=== PATIENT | male | born 1960 | race Caucasian/White ===

== ENCOUNTER 2016-06-24 09:40 | Inpatient (IN) | payer OTHER ==
[2016-06-07 10:47] VITALS: BMI 53.0
--- NOTE | 2016-06-07 11:28 | PAT Medication Instructions ---
Service Date Jun 07, 2016. Current Home Medication List Amlodipine Besylate-Olmesartan (Saad), 1 TAB PO QAM Aspirin (Aspirin Ec), 81 MG PO NOON Furosemide (Lasix), 40 MG PO QAM Hydrocodone/Acetaminophen 5MG/325MG (Carnegie 5MG/325MG), 1 TAB PO TID PRN for RN Metolazone (Metolazone), 5 MG PO QAM Potassium Chloride Pwd (Klor-Con Pwd), 20 MEQ PO QAM [Magnesium], 1 TAB PO PRN Medication Instructions For Your Scheduled Surgery - Check with surgeon/unemployment claims adjudicator for instructions: Aspirin (Aspirin Ec), 81 MG PO NOON - Hold the following medications the morning of surgery: [Magnesium], 1 TAB PO PRN Potassium Chloride Pwd (Klor-Con Pwd), 20 MEQ PO QAM Furosemide (Lasix), 40 MG PO QAM\ Metolazone (Metolazone), 5 MG PO QAM - Take the following medications the morning of surgery with a sip of water: Amlodipine Besylate-Olmesartan (Saad), 1 TAB PO QAM Hydrocodone/Acetaminophen 5MG/325MG (Carnegie 5MG/325MG), 1 TAB PO TID PRN for RN ( okay to take up to 4 hours prior to surgery if needed) - Take the following medications as scheduled the night before surgery: [Magnesium], 1 TAB PO PRN Hydrocodone/Acetaminophen 5MG/325MG (Carnegie 5MG/325MG), 1 TAB PO TID PRN for RN If you have any questions please call us at [phone] (Danitza Choudhary PA-C) or [phone] or [phone]
[2016-06-07 12:05] LABS: URINE APPEARANCE CLEAR (CLEAR); URINE BILIRUBIN NEG (NEG); URINE COLOR YELLOW; URINE NITRITE NEG (NEG); URINE SPECIFIC GRAVITY 1.015 (1.000-1.030); UROBILINOGEN NEG (NEG)
[2016-06-07 12:10] LABS: MANUAL MICROSCOPIC REQUIRED? NO; REVIEW REQ? NO
[2016-06-07 12:27] LABS: BASO % 0.4 %; BASO ABS # 0.04 K/uL (0-0.2); COMPLETE YES; EOS % 4.4 %; HEMATOCRIT 43.5 % (42-52); IG% 0.3 %; LYMPH % 28.9 %; LYMPH ABS # 2.77 K/uL (1.2-3.4); MEAN CELL VOLUME 90.4 fL (80-100); MEAN CORPUSCULAR HEMOGLOBIN 30.4 pg (25-34); MEAN CORPUSCULAR HGB CONC 33.6 g/dl (32-36); MEAN PLATELET VOLUME 10.7 fL (7.4-10.4); MONO % 6.5 %; NEUT % 59.5 %; PLATELET COUNT 225 K/uL (130-400); RED BLOOD COUNT 4.81 M/uL (4.7-6.1); WHITE BLOOD COUNT 9.58 K/uL (4.8-10.8)
--- NOTE | 2016-06-07 12:35 | DIAGNOSTIC IMAGING REPORT ---
CHEST 2 VIEWS ROUTINE CLINICAL HISTORY: pat preoperative evaluation COMPARISON STUDY: No previous studies for comparison. FINDINGS: The bones soft tissues and hemidiaphragms are normal. The cardiomediastinal silhouette is normal. The lungs are clear. The pulmonary vasculature is normal. IMPRESSION: Negative chest. . . 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 06/07/2016 12:33 PM Dictated Date/Time: 06/07/2016 12:32 PM
[2016-06-07 12:37] LABS: PARTIAL THROMBOPLASTIN RATIO 1.1; PROTHROMBIN TIME (PATIENT) 10.2 SECONDS (9.0-12.0)
[2016-06-07 13:01] LABS: BUN/CREATININE RATIO 19.7 (10-20); CALCIUM 9.8 mg/dl (8.5-10.1); CREATININE 0.89 mg/dl (0.60-1.40)
[2016-06-24] VITALS (7 sets, daily range): BP systolic 130–195; BP diastolic 63–85; PULSE 59–73; TEMP 36.6–37.1; O2SAT 96–98; Ht 177.8 cm; Wt 168.1 kg
[~2016-06-24] VITALS: Ht 177.8 cm; Wt 168.1 kg
[~2016-06-24 09:40] MED LIST: AMLO-3 PO; ASPI81TA28 PO; CEFAZOLIN 3000 MG/65 ML D5W IV SCH; FRS/40 PO; HYDR-5688 PO; LACTATED RINGER'S 1000ML 1,000 ML IV SCH; MAGNESIUM PO; POTA1POW PO; ZRX5 PO
[2016-06-24] MEDS ORDERED: MIDAZOLAM HCL 1 MG/ML 2ML VIAL ONE (11:59)
[2016-06-24] MEDS ORDERED: FENTANYL CITRATE INJ 50 MCG/1 ML 2 ML VIAL ONE ×3 (11:59→13:57)
[2016-06-24] MEDS ORDERED: PROPOFOL IV EMULSION 10 MG/ML 20 ML VIAL IV ONE ×2 (11:59→13:27)
[2016-06-24] MEDS ORDERED: LIDOCAINE HCL 2% 2 ML VIAL (20MG/ML) ONE (11:59)
[2016-06-24] MEDS ORDERED: ONDANSETRON INJ 2 MG/ML 2 ML VIAL IV PRN ×2 (12:15→16:45)
[2016-06-24] MEDS ORDERED: MEPERIDINE HCL 25 MG/ML CARP IV PRN (12:15)
[2016-06-24] MEDS ORDERED: ATROPINE SULFATE 0.1 MG/ML 5ML SYR IV PRN (12:15)
[2016-06-24] MEDS ORDERED: EpHEDrine SULFATE INJ 50 MG/ML AMP IV PRN (12:15)
--- NOTE | 2016-06-24 12:30 | History & Physical Bridge Note ---
H&P Re-Evaluation Bridge Note: I have examined the patient, reviewed the History & Physical and in the interval since the performance of the History & Physical I have noted the following changes of clinical significance: No changes noted
[2016-06-24] MEDS ORDERED: BUPIVACAINE 0.5 % 5 MG/1 ML MPF 30ML VIAL ONE (12:44)
[2016-06-24] MEDS ORDERED: SUCCINYLCHOLINE 100MG/5ML SYR IV ONE (13:27)
[2016-06-24] MEDS ORDERED: ROCURONIUM BROMIDE 10 MG/ML 5 ML VIAL ONE (13:27)
[2016-06-24] MEDS ORDERED: GLYCOPYRROLATE INJ 0.2 MG/ML VIAL ONE (13:28)
[2016-06-24] MEDS ORDERED: NEOSTIGMINE METHYLSULFATE 5 MG/5 ML SYR ONE (13:28)
[2016-06-24] MEDS ORDERED: ONDANSETRON INJ 2 MG/ML 2 ML VIAL ONE (13:28)
[2016-06-24] MEDS ORDERED: EpHEDrine SULFATE INJ 50 MG/ML AMP ONE (13:35)
[2016-06-24] MEDS ORDERED: HydrALAZINE HCL 20 MG/ML VIAL ONE (14:02)
[2016-06-24] MEDS ORDERED: BACITRACIN OINT 15 GM TUBE ONE (15:40)
[2016-06-24] MEDS ORDERED: OXYCODONE/ACETAMINOPHEN 7.5-325 TAB PO PRN (16:45)
[2016-06-24] MEDS ORDERED: MAGNESIUM PO SCH (16:45)
[2016-06-24] MEDS ORDERED: HYDROmorphone INJ 1 MG/ML SYR IV PRN (16:45)
[2016-06-24] MEDS ORDERED: ESMOLOL HCL 10 MG/ML 10 ML VIAL ONE (16:48)
[2016-06-24] MEDS: FENTANYL CITRATE INJ 50 MCG/1 ML 2 ML VIAL IV PRN ×4 (16:49→17:05)
--- NOTE | 2016-06-24 17:07 | [facility] Post Operative Brief Note ---
Immediate Operative Summary Operative Date Jun 24, 2016. Pre-Operative Diagnosis scrotal lymphedema, bilateral hydroceles Post-Operative Diagnosis Scrotal lymphedema; b/l hydroceles; b/l lipomas of the cord Procedure(s) Performed Diagnostic laparoscopy (Dr. Sanchez); complex reduction scrotoplasty; b/l hydrocelectomy; b/l excision of cord lipomas Surgeon Dr. Jeremias Medina Behavioral Analyst Surgeon(s) Dr. Ruddy Allen & J[place]ICA Ross & Dr.Matthew Sanchez Estimated Blood Loss 125ml Findings Scrotal lymphedema. Healthy testes w/ small/moderate hydroceles bilaterally. Large fatty collections of the cord b/l. Given concern that this was omentum or intra-peritoneal fat, we requested an intra-op consult from Dr. Sanchez who subsequently assisted us with interrogating these areas. Diagnostic laparoscopy was carried out without clear intraop evidence that the fat in the scrotum was secondary to inguinal hernias. Following this evaluation, we transected and excised this fatty tissue, revealing no bowel or other structures within and it did not palpably extend through the ring or adjacent to the ring,, supporting the diagnosis of cord lipoma. Specimens B. Scrotal fat right C. Scrotal fat left Drains STEFANIA x2; cunninghma catheter Anesthesia gen Complication(s) None Disposition Recovery Room / PACU (stable)
[2016-06-24 17:14] LABS: HEMATOCRIT 37.7 % (42-52); MEAN CELL VOLUME 88.7 fL (80-100); MEAN CORPUSCULAR HEMOGLOBIN 30.1 pg (25-34); MEAN PLATELET VOLUME 9.9 fL (7.4-10.4); PLATELET COUNT 230 K/uL (130-400); RED BLOOD COUNT 4.25 M/uL (4.7-6.1); WHITE BLOOD COUNT 16.28 K/uL (4.8-10.8)
[2016-06-24] MEDS: MoRPHine SULFATE 10 MG/ML CARP/VIAL IV PRN ×5 (17:22→17:42)
[2016-06-24 17:35] LABS: BUN/CREATININE RATIO 14.9 (10-20); CALCIUM 8.8 mg/dl (8.5-10.1); CREATININE 1.3 mg/dl (0.60-1.40); POTASSIUM 3.7 mmol/L (3.5-5.1)
[2016-06-24] MEDS ORDERED: ACETAMINOPHEN 1000 MG/100 ML IV IV ONE ×2 (17:42→17:45)
--- NOTE | 2016-06-24 18:30 | Anesthesiology Progress Note ---
Anesthesia Post Op Note Date & Time Jun 24, 2016 at 18:28 Vital Signs Pain Intensity: 7 Vital Signs Past 12 Hours Date Time Temp Pulse Resp B/P Pulse Ox O2 Delivery O2 Flow Rate FiO2 06/24/16 17:50 36.1 61 16 113/64 94 BiPAP 5 06/24/16 17:40 56 16 126/57 93 BiPAP 5 06/24/16 17:30 54 16 127/58 94 BiPAP 5 06/24/16 17:20 56 16 136/63 94 BiPAP 5 06/24/16 17:10 60 16 143/97 92 BiPAP 5 06/24/16 17:00 66 16 137/75 94 BiPAP 4 06/24/16 16:50 63 16 146/73 97 BiPAP 06/24/16 16:44 36.2 68 16 150/71 97 Mask 10 06/24/16 10:00 37.1 60 22 195/85 96 Room Air Notes Mental Status: alert / awake / arousable, participated in evaluation Pt Amnestic to Procedure: Yes Nausea / Vomiting: adequately controlled Pain: improving with treatment Airway Patency, RR, SpO2: stable & adequate BP & HR: stable & adequate Hydration State: stable & adequate Anesthetic Complications: no major complications apparent Patient was placed on his home BiPAP at his regular settings. Pain was improving with treatment. No nausea. Plan for continued BiPAP use overnight and also wrote for continued pulse oximetry on the floor. VSS. Ok for transfer.
[2016-06-24] MEDS: LACTATED RINGER'S 1000ML 1,000 ML IV SCH (19:52)
[2016-06-24] MEDS: AMPICILLIN IV 2,000 MG in SODIUM CHLOR 0.9% AD-VAN 100ML 100 ML IV SCH (19:53)
[2016-06-24] MEDS: DOCUSATE SODIUM 100 MG CAP PO SCH (20:42)
[2016-06-24] MEDS: ACETAMINOPHEN 500 MG TAB PO SCH (20:43)
[2016-06-24] MEDS: GENTAMICIN INJ 100 MG in DEXTROSE 5% 100ML 100 ML IV SCH (21:38)
[2016-06-24] MEDS ORDERED: GENTAMICIN INJ 80 MG in DEXTROSE 5% 100ML 100 ML IV SCH (22:00)
--- NOTE | 2016-06-24 22:08 | OPERATIVE REPORT ---
DATE OF OPERATION: 06/24/2016 INTRAOPERATIVE CONSULT AND PROCEDURE NOTE Please refer to Dr. Jeremias Medina's operative note for the main component of the procedure. They were in the midst of performing a reduction scrotoplasty as well as some other procedures, I believe including some hydrocelectomies on a patient with a massively enlarged scrotum. During this process, they encountered 2 large strands of what was felt to be omentum. They were concerned that perhaps these were previously undiagnosed incarcerated bilateral inguinal hernias with omentum. They requested my presence in the operating suite. When I entered, they already had a large portion of the scrotal reduction performed. Exposed were 2 large strands of what appeared to be omentum exteriorized. They did have the scrotum and cord and cord structures all identified and uninjured. There was no evidence of any bowel incarceration. Because of the patient's massive size and obesity, I recommended that we perform an intraoperative diagnostic laparoscopy to see if in fact there were incarcerated bilateral hernias before undertaking inguinal explorations. We were able to sterilely prep and drape the abdomen and I scrubbed into the case. Dr. Medina and Dr. Allen both assisted me during my portion of the procedure. I began by making a small supraumbilical incision with an 11 blade scalpel and carried it down through the soft tissue using electrocautery. The anterior rectus fascia was opened using electrocautery and two #0 Vicryl stay sutures were placed. Peritoneum was elevated with hemostats and incised under direct vision using a Metzenbaum scissor. A finger sweep was performed. A 12 mm Jennifer trocar was placed and the abdomen was insufflated to 20 mmHg. Laparoscope was inserted. We placed 2 left mid abdominal 5 mm trocars under direct vision as well. The patient was placed in steep Trendelenburg position. Began by using smooth graspers and looking down into the bilateral inguinal areas. There was in fact no evidence of inguinal hernias. The bowel was all identified. There was no evidence of any omental or bowel incarceration. We checked both the left and right sides thoroughly. No other abnormalities identified within the abdomen either. This allowed us assurance that it was actually some sort of lipomatous phenomenon in the scrotum that they could readily transect. After identifying there were no true hernias, I then scrubbed out of the case. They wished that I would leave the trocars as they wanted to evaluate things at the end of their procedure as well. I scrubbed out of the case at this point and they continued their scrotal portion, followed by I believe they reevaluated things laparoscopically and then they closed all the laparoscopic trocars. I attest to the content of the Intraoperative Record and any orders documented therein. Any exceptio ns are noted below.
--- NOTE | 2016-06-24 23:12 | OPERATIVE REPORT ---
DATE OF OPERATION: 06/24/2016 PREOPERATIVE DIAGNOSIS: Massive scrotal lymphedema, bilateral hydroceles. POSTOPERATIVE DIAGNOSIS: Massive scrotal lymphedema, bilateral hydroceles, bilateral cord lipomas. PROCEDURE PERFORMED: highly complex reduction scrotoplasty, bilateral hydrocele repair, excision of cord lipoma and exploratory laparoscopy by Dr. Nithin Sanchez. PRIMARY SURGEON: Dr. Jeremias Medina. ASSISTANTS: Dr. Ruddy Allen and Ms. Ny Morales. INTRAOPERATIVE SUBSEA ENGINEER: Dr. Nithin Sanchez ANESTHESIA: General. ESTIMATED BLOOD LOSS: 125 mL URINE OUTPUT: Not recorded. SPECIMEN: 1. Scrotal skin for routine pathology. 2. Right cord lipoma for routine pathology. 3. Left cord lipoma for routine pathology. DRAINS: STEFANIA x2 and Shipman catheter. DESCRIPTION OF THE PROCEDURE: Cristopher Knight was identified in the preoperative holding area. Appropriate informed consents were reviewed and completed and the patient was transported to the operating suite. Upon arrival, he received appropriate preoperative antibiotics in the form of Ancef. He was placed in dorsal lithotomy position and sterilely prepped and draped in standard fashion. A Shipman catheter was introduced per urethra. I then marked tentative incision in a semicircular fashion, beginning on the right inguinal fold ending in the left inguinal fold and encompassing the upper 1/4 of his scrotum. Thereafter, I marked a second semicircular incision that would track underneath the most dependent portion of the scrotum where it meets the perineum. I began with the upper incision by incising sharply through the skin utilizing a skin knife. I then carried this further with Bovie electrocautery and then ultimately, with a LigaSure device. As I dissected through the dartos fascia, I was able to skeletonize the tunical vaginalis and testes and deliver these structures through the incision. After elevating these out of the incision, I was able to more easily complete my posterior incision through the back of the scrotal wall, again utilizing a skin knife, Bovie electrocautery and the LigaSure device. This debulked the vast majority of the extremely large scrotum. The specimen was passed off the table. We then inspected the testes and of note, large hydroceles were clearly visible in the distal aspect; however, the upper aspect of the scrotum appeared to have a relatively thick feeling, concerning me that there was some fat and other tissue within the tunica vaginalis of the upper scrotum. I opened the tunica vaginalis over the testis, where there was clearly visible hydrocele fluid. This was explored. The testis was healthy and appropriate. The hydrocele was corrected. We then explored higher up the cord and found a lipomatous structure, concerning for omentum. I palpated up around the external ring and felt the fat extending up to this area; however, it was somewhat difficult to discern if it protruded through it. I was unable to reduce this. Inspection of the left side, revealed a similar finding overall, although I had not yet opened the tunica vaginalis. The appearance certainly made me concerned that there were concurrent bilateral inguinal hernias. We subsequently called for intraoperative consult from Dr. Nithin Sanchez from general surgery. He graciously helped us further evaluate the situation. He performed a diagnostic laparoscopy and inspected internal rings. This interrogation failed to reveal any inguinal hernias - either direct or indirect. From the abdominal side, there was no visible bowel or omentum protruding into the scrotum/inguinal rings. We subsequently felt that the fatty tissue was most likely cord lipoma on both sides. We were able to separate the cord structures away from the fat, then we carefully dissected through the fat and transected this as proximally as possible utilizing a LigaSure device for hemostasis. There was no bowel or other abnormalities noted within this fatty tissue and there was excellent hemostasis. After completing the right-sided dissection, we performed an identical dissection on the left side. Before we closed the scrotum, we reinspected through the laparoscopic ports placed previously in the abdomen. There were no abnormalities appreciated and no change in the appearance of the inguinal rings following this resection. After confirming excellent hemostasis, I began reconstruction of the scrotal wall. In the most dependent portion of the incision, I began a vertical closure to essentially elongate and reconstruct the perineum.This reconstructed the perineal raphae. Approximately five Ethibond stitches were placed in simple interrupted fashion to creat a deep closure layer in this area. I followed this by closure of the skin with vertical mattress 0 Vicryl stitches. Before closing the scrotum, I placed b/l plicating stitches to attempt to hold some of his penile shaft skin down and help keep limit the burying of his penis. Following this plication, I then reattached the midline scrotal rhaphe to the previously closed area in the perineum. This was accomplished with a deep layer of 0 Ethibond simple stitches followed by closure of the skin with 0 Vicryl vertical mattress stitches. I then proceeded to place several intermittent tacking stitches with 0 Ethibond around the sides of the scrotum. This allowed us to trap the testes back in their paskenta position in the scrotum. I then placed 2 STEFANIA drains through the upper portion of the scrotum, one on the right and one on the left. These were sutured in place. Ethibond was then used to circumferentially reclose the dartos fascia. These were closely placed, simple interrupted stitches. I estimate approximately 70 stitches were placed around the scrotum. I then proceeded to place vertical mattress 0 Vicryl stitches to close the skin and complete our reapproximation. There was relatively good cosmetic result at the conclusion of the case with a drastic reduction in the scrotal appearance. We also proceeded to close the laparoscopic ports, utilizing the previously placed Vicryl stitch for the Jennifer port and 4-0 Monocryl to close the skin. These were dressed with Dermabond. The wound down in the scrotum was dressed with bacitracin, fluffs and a scrotal support. Shipman catheter was left in place in addition to the drains. The patient was subsequently extubated and taken to the PACU in stable condition. There were no other complications. I attest to the content of the Intraoperative Record and any orders documented therein. Any exceptions are noted below. GAURAVD
[2016-06-25] MEDS: LACTATED RINGER'S 1000ML 1,000 ML IV SCH ×3 (00:08→18:07)
[2016-06-25] MEDS: AMPICILLIN IV 2,000 MG in SODIUM CHLOR 0.9% AD-VAN 100ML 100 ML IV SCH ×3 (01:30→13:22)
[2016-06-25] MEDS: ACETAMINOPHEN 500 MG TAB PO SCH ×4 (01:30→20:00)
[2016-06-25 02:45] VITALS: BP 153/75; PULSE 70; TEMP 36.9; O2SAT 93
[2016-06-25] MEDS ORDERED: NURSING DECISION MEDICATION ORDER SCH (03:15)
[2016-06-25] MEDS ORDERED: SODIUM CHLORIDE 0.65% NA SOLN 45 ML (OCEAN) ONE (03:20)
[2016-06-25] MEDS ORDERED: SODIUM CHLORIDE 0.65% NA SOLN 45 ML (OCEAN) PRN (03:30)
[2016-06-25] MEDS: KETOROLAC TROMETHAMINE 30 MG/ML VIAL IV. PRN ×2 (04:17→13:27)
[2016-06-25] MEDS: GENTAMICIN INJ 100 MG in DEXTROSE 5% 100ML 100 ML IV SCH ×2 (05:43→14:10)
[2016-06-25 07:01] LABS: BASO % 0.2 %; BASO ABS # 0.02 K/uL (0-0.2); COMPLETE YES; EOS % 0.7 %; HEMATOCRIT 36.1 % (42-52); IG% 0.4 %; LYMPH % 17.9 %; LYMPH ABS # 2.18 K/uL (1.2-3.4); MEAN CELL VOLUME 90.3 fL (80-100); MEAN CORPUSCULAR HEMOGLOBIN 29.8 pg (25-34); MEAN PLATELET VOLUME 10.2 fL (7.4-10.4); MONO % 8.1 %; NEUT % 72.7 %; PLATELET COUNT 193 K/uL (130-400)
[2016-06-25 07:09] VITALS: BP 168/78; PULSE 60; TEMP 37; O2SAT 96
--- NOTE | 2016-06-25 07:26 | Progress Note ---
Progress Note Date of Service Jun 25, 2016. Progress Note S: Doing as well as can be expected after surgery - pain is notable, but tolerable - no leg weakness/pain - no abdominal pain O: 06/25/16 06:46 Red Blood Count 4.00, Mean Corpuscular Volume 90.3, Mean Corpuscular Hemoglobin 29.8, Mean Corpuscular Hemoglobin Concent 33.0, Mean Platelet Volume 10.2, Neutrophils (%) (Auto) 72.7, Lymphocytes (%) (Auto) 17.9, Monocytes (%) (Auto) 8.1, Eosinophils (%) (Auto) 0.7, Basophils (%) (Auto) 0.2, Neutrophils # (Auto) 8.88, Lymphocytes # (Auto) 2.18, Monocytes # (Auto) 0.99, Eosinophils # (Auto) 0.08, Basophils # (Auto) 0.02 Test 06/24/16 17:05 06/25/16 06:46 Est Creatinine Clear Calc Drug Dose 97.3 ml/min White Blood Count 12.20 K/uL (4.8-10.8) Red Blood Count 4.00 M/uL (4.7-6.1) Hemoglobin 11.9 g/dL (14.0-18.0) Hematocrit 36.1 % (42-52) Mean Corpuscular Volume 90.3 fL (80-100) Mean Corpuscular Hemoglobin 29.8 pg (25-34) Mean Corpuscular Hemoglobin Concent 33.0 g/dl (32-36) Platelet Count 193 K/uL (130-400) Mean Platelet Volume 10.2 fL (7.4-10.4) Neutrophils (%) (Auto) 72.7 % Lymphocytes (%) (Auto) 17.9 % Monocytes (%) (Auto) 8.1 % Eosinophils (%) (Auto) 0.7 % Basophils (%) (Auto) 0.2 % Neutrophils # (Auto) 8.88 K/uL (1.4-6.5) Lymphocytes # (Auto) 2.18 K/uL (1.2-3.4) Monocytes # (Auto) 0.99 K/uL (0.11-0.59) Eosinophils # (Auto) 0.08 K/uL (0-0.5) Basophils # (Auto) 0.02 K/uL (0-0.2) RDW Standard Deviation 49.6 fL (36.4-46.3) RDW Coefficient of Variation 14.9 % (11.5-14.5) Immature Granulocyte % (Auto) 0.4 % Immature Granulocyte # (Auto) 0.05 K/uL (0.00-0.02) Vital Signs Past 12 Hours Date Time Temp Pulse Resp B/P Pulse Ox O2 Delivery O2 Flow Rate FiO2 06/25/16 07:09 37.0 60 20 168/78 96 CPAP 06/25/16 02:45 36.9 70 16 153/75 93 BiPAP 06/25/16 00:00 BiPAP 06/24/16 22:55 36.6 61 18 157/76 96 CPAP 06/24/16 21:41 36.6 59 16 130/63 97 BiPAP 5.0 06/24/16 20:20 36.8 73 18 138/79 96 CPAP 5.0 06/24/16 19:22 36.7 70 20 154/72 97 CPAP 5.0 NAD using his home bipap overnight RRR abd soft - lap incisions appropriate JPs with serosang drainage scrotal incisions healing appropriately some expected induration of the testes A/P: Massive scrotal lymphedema s/p reduction scrotoplasty - doing well - maintain drains - ambulate today - maintain cunningham for the time being, secondary to buried penis and desire to keep the wound dry - keep scrotal support
[2016-06-25 07:37] LABS: BUN/CREATININE RATIO 18.2 (10-20); CALCIUM 8.5 mg/dl (8.5-10.1); CREATININE 1.1 mg/dl (0.60-1.40); POTASSIUM 3.9 mmol/L (3.5-5.1)
--- NOTE | 2016-06-25 08:05 | Clinical Documentation Query ---
VENITA Sandoval : CLINICAL DOCUMENTATION QUERY Patient is a 56 year old male who on 06/24 underwent reduction scrotoplasty, bilateral hydrocele repair, excision of cord lipoma and exploratory laparoscopy by Dr. Sanchez. BMI noted to be 53.2 kg/m*m. In order to capture this information in the medical record, the associated condition must be explicitly documented by the provider. As appropriate, consider inclusion of documentation making note of this particular finding as appropriate as this directly impacts DRG assignment, severity of illness, and risk of mortality. Thank you. In your clinical opinion does your patient have a personal history of: (x ) Obesity (x ) Other explanation of clinical findings (Please Explain) (massive lymphedema of the legs and scrotum) ( ) Unable to determine (Please Define) ( ) Need to Discuss ( ) Not Agree Clarification - BMI Reporting Coding [facility] [id number], p15 Question: There has been some confusion as to whether nursing staff documentation is acceptable for assigning BMI. Since hospitals are allowed to code the BMI based on the wood lathe operator's documentation, it would seem reasonable to assign the BMI based on the nurse's documentation as well. Can coders use nursing documentation to assign the BMI? Answer: Yes, the BMI can be assigned based on medical record documentation from clinicians, including nurses and dieticians who are not the patient's provider. As stated in the Official Guidelines for Coding and Reporting, BMI code assignment may be based on medical record documentation from clinicians who are not the patient's provider, since this information is typically documented by other clinicians involved in the care of the patient. Dieticians were only mentioned as an example of a clinician that might document BMI information. However, the associated diagnosis (such as overweight, obesity, or underweight) must be documented by the provider. Please clarify and document your clinical opinion in the progress notes and discharge summary. Terms such as "probable", "suspected", "likely", "questionable", "possible", or "still to be ruled out" are acceptable. IF IN AGREEMENT, YOU MUST DOCUMENT ABOVE DIAGNOSTIC STATEMENT IN DAILY PROGRESS NOTES AND DISCHARGE SUMMARY. This document is not part of the patient's record. Thank You, Cliff Rios, RN [phone]
[2016-06-25] MEDS: POTASSIUM CHLORIDE PWD 20 MEQ PACK PO SCH (08:29)
[2016-06-25] MEDS: METOLAZONE 5 MG TAB PO SCH (08:29)
[2016-06-25] MEDS: FUROSEMIDE 40 MG TAB PO SCH (08:29)
[2016-06-25] MEDS: DOCUSATE SODIUM 100 MG CAP PO SCH ×2 (08:30→20:28)
[2016-06-25] MEDS: ASPIRIN 81 MG ECTAB PO SCH (08:30)
[2016-06-25] MEDS: HEPARIN SOD 5000 UNIT/0.5 ML CARP SQ SCH ×2 (08:33→21:00)
--- NOTE | 2016-06-25 08:39 | Anesthesiology Progress Note ---
Anesthesia Post Op Note Date & Time Jun 25, 2016 at 08:38 Vital Signs Pain Intensity: 8.0 Vital Signs Past 12 Hours Date Time Temp Pulse Resp B/P Pulse Ox O2 Delivery O2 Flow Rate FiO2 06/25/16 07:09 37.0 60 20 168/78 96 CPAP 06/25/16 02:45 36.9 70 16 153/75 93 BiPAP 06/25/16 00:00 BiPAP 06/24/16 22:55 36.6 61 18 157/76 96 CPAP 06/24/16 21:41 36.6 59 16 130/63 97 BiPAP 5.0 Notes Mental Status: alert / awake / arousable, participated in evaluation Pt Amnestic to Procedure: Yes Nausea / Vomiting: adequately controlled Pain: adequately controlled Airway Patency, RR, SpO2: stable & adequate BP & HR: stable & adequate Hydration State: stable & adequate Anesthetic Complications: no major complications apparent
[2016-06-25 12:00] VITALS: BP 186/102; PULSE 76; TEMP 37.1; O2SAT 95
[2016-06-25 15:56] VITALS: BP 173/81; PULSE 73; TEMP 36.9; O2SAT 95
[2016-06-25] MEDS ORDERED: NURSING VERBAL MED ORDER ONE (18:00)
[2016-06-25] MEDS: PHENAZOPYRIDINE HCL 200 MG TAB PO PRN (18:42)
--- NOTE | 2016-06-25 19:15 | Progress Note ---
Progress Note Date of Service Jun 25, 2016. Progress Note Came to evaluate patient as he was having excessive urinary frequency and urgency - discomfort from the bladder to the tip of the penis - states it started almost immediately after taking his dose of lasix - reports this happens, on a lesser degree, at home (will urinate 5-6 times shortly after taking the medication) - this has been somewhat worse than his normal - RN bladder scanned for 24cc - I repeated after arrival - same result (between 0-30cc) - bladder does not feel palpably distended - scrotum with notable edema and subsequent buried penis - I have offered a catheter for relief, he prefers to continue with his urinary frequency - plan for observation overnight - oxybutynin and pyridium ordered - IVF stopped, adequate PO liquid intake - cont with his lasix to prevent further fluid overload
[2016-06-25] MEDS: OXYBUTYNIN CHLORIDE 5 MG TAB PO PRN (20:27)
[2016-06-25 22:34] VITALS: BP 169/91
[2016-06-26 00:03] VITALS: BP 172/90; PULSE 88; TEMP 37; O2SAT 94
[2016-06-26] MEDS: KETOROLAC TROMETHAMINE 30 MG/ML VIAL IV. PRN (00:11)
[2016-06-26] MEDS: ACETAMINOPHEN 500 MG TAB PO SCH ×4 (02:43→20:34)
[2016-06-26 06:00] LABS: BASO % 0.3 %; BASO ABS # 0.04 K/uL (0-0.2); COMPLETE YES; EOS % 0.9 %; HEMATOCRIT 34.4 % (42-52); IG% 0.4 %; LYMPH % 18.2 %; LYMPH ABS # 2.31 K/uL (1.2-3.4); MEAN CELL VOLUME 88.4 fL (80-100); MEAN CORPUSCULAR HEMOGLOBIN 29.6 pg (25-34); MEAN CORPUSCULAR HGB CONC 33.4 g/dl (32-36); MONO % 9.2 %; PLATELET COUNT 206 K/uL (130-400); RED BLOOD COUNT 3.89 M/uL (4.7-6.1); WHITE BLOOD COUNT 12.68 K/uL (4.8-10.8)
[2016-06-26 06:52] LABS: CALCIUM 8.7 mg/dl (8.5-10.1); CREATININE 1.2 mg/dl (0.60-1.40); POTASSIUM 3.2 mmol/L (3.5-5.1)
[2016-06-26 07:44] VITALS: BP 181/96; PULSE 78; TEMP 37; O2SAT 96
[2016-06-26 09:11] VITALS: O2SAT 96
[2016-06-26] MEDS: DOCUSATE SODIUM 100 MG CAP PO SCH ×2 (09:42→20:31)
[2016-06-26] MEDS: POTASSIUM CHLORIDE PWD 20 MEQ PACK PO SCH (09:42)
[2016-06-26] MEDS: ASPIRIN 81 MG ECTAB PO SCH (09:42)
[2016-06-26] MEDS: PHENAZOPYRIDINE HCL 200 MG TAB PO PRN (09:43)
[2016-06-26] MEDS: OXYBUTYNIN CHLORIDE 5 MG TAB PO PRN (09:43)
[2016-06-26] MEDS: AZOR PO SCH (09:44)
[2016-06-26] MEDS: FUROSEMIDE 40 MG TAB PO SCH (09:44)
[2016-06-26] MEDS: METOLAZONE 5 MG TAB PO SCH (09:45)
[2016-06-26] MEDS: HEPARIN SOD 5000 UNIT/0.5 ML CARP SQ SCH ×2 (09:49→20:33)
--- NOTE | 2016-06-26 10:56 | Progress Note ---
Progress Note Date of Service Jun 26, 2016. Progress Note S: progressing well - urinary issues last night have resolved this AM - stronger stream, no urgency, frequency - pain well controlled - ambulating without difficulty - drain outputs are reasonable (serosang) O: 06/26/16 05:39 Red Blood Count 3.89, Mean Corpuscular Volume 88.4, Mean Corpuscular Hemoglobin 29.6, Mean Corpuscular Hemoglobin Concent 33.4, Mean Platelet Volume 10.0, Neutrophils (%) (Auto) 71.0, Lymphocytes (%) (Auto) 18.2, Monocytes (%) (Auto) 9.2, Eosinophils (%) (Auto) 0.9, Basophils (%) (Auto) 0.3, Neutrophils # (Auto) 9.00, Lymphocytes # (Auto) 2.31, Monocytes # (Auto) 1.17, Eosinophils # (Auto) 0.11, Basophils # (Auto) 0.04 06/26/16 05:39 Test 06/26/16 05:39 White Blood Count 12.68 K/uL (4.8-10.8) Red Blood Count 3.89 M/uL (4.7-6.1) Hemoglobin 11.5 g/dL (14.0-18.0) Hematocrit 34.4 % (42-52) Mean Corpuscular Volume 88.4 fL (80-100) Mean Corpuscular Hemoglobin 29.6 pg (25-34) Mean Corpuscular Hemoglobin Concent 33.4 g/dl (32-36) Platelet Count 206 K/uL (130-400) Mean Platelet Volume 10.0 fL (7.4-10.4) Neutrophils (%) (Auto) 71.0 % Lymphocytes (%) (Auto) 18.2 % Monocytes (%) (Auto) 9.2 % Eosinophils (%) (Auto) 0.9 % Basophils (%) (Auto) 0.3 % Neutrophils # (Auto) 9.00 K/uL (1.4-6.5) Lymphocytes # (Auto) 2.31 K/uL (1.2-3.4) Monocytes # (Auto) 1.17 K/uL (0.11-0.59) Eosinophils # (Auto) 0.11 K/uL (0-0.5) Basophils # (Auto) 0.04 K/uL (0-0.2) RDW Standard Deviation 48.0 fL (36.4-46.3) RDW Coefficient of Variation 14.9 % (11.5-14.5) Immature Granulocyte % (Auto) 0.4 % Immature Granulocyte # (Auto) 0.05 K/uL (0.00-0.02) Anion Gap 8.0 mmol/L (3-11) Est Creatinine Clear Calc Drug Dose 105.4 ml/min Estimated GFR () 76.8 Estimated GFR (Non- 66.3 BUN/Creatinine Ratio 17.0 (10-20) Calcium Level 8.7 mg/dl (8.5-10.1) Vital Signs Past 12 Hours Date Time Temp Pulse Resp B/P Pulse Ox O2 Delivery O2 Flow Rate FiO2 06/26/16 09:11 96 Room Air 06/26/16 07:44 37.0 78 16 181/96 96 Room Air 06/26/16 00:15 BiPAP 06/26/16 00:03 37.0 88 18 172/90 94 Room Air NAD BiPAP on (home unit) - no resp distress - RRR abd soft - lap sites w/o infection - non-tender - scrotum with modest edema - incisions clean, no erythema,no discharge - drains serosang A/P: s/p complex reduction scrotoplasty - progressing well - maintain drains for now - advance diet - add flomax
[2016-06-26] MEDS ORDERED: TAMSULOSIN HCL 0.4 MG CAP PO ONE (11:15)
[2016-06-26 11:44] VITALS: BP 165/88; PULSE 76; TEMP 37; O2SAT 96
[2016-06-26 15:22] VITALS: BP 168/78; PULSE 79; TEMP 37.1; O2SAT 95
[2016-06-26] MEDS ORDERED: TAMSULOSIN HCL 0.4 MG CAP PO SCH (21:00)
[2016-06-26 23:00] VITALS: BP 166/78; PULSE 82; TEMP 37.2; O2SAT 93
[2016-06-27] MEDS: ACETAMINOPHEN 500 MG TAB PO SCH ×2 (02:00→07:27)
[2016-06-27 06:41] LABS: BASO % 0.4 %; BASO ABS # 0.04 K/uL (0-0.2); COMPLETE YES; EOS % 4.2 %; HEMATOCRIT 33.5 % (42-52); IG% 0.5 %; LYMPH % 21.7 %; LYMPH ABS # 2.44 K/uL (1.2-3.4); MEAN CELL VOLUME 89.1 fL (80-100); MEAN CORPUSCULAR HEMOGLOBIN 29.8 pg (25-34); MEAN CORPUSCULAR HGB CONC 33.4 g/dl (32-36); MEAN PLATELET VOLUME 10.3 fL (7.4-10.4); MONO % 7.9 %; NEUT % 65.3 %; PLATELET COUNT 215 K/uL (130-400); RED BLOOD COUNT 3.76 M/uL (4.7-6.1); WHITE BLOOD COUNT 11.26 K/uL (4.8-10.8)
[2016-06-27 07:11] VITALS: BP 153/75; PULSE 74; TEMP 37.2; O2SAT 97
[2016-06-27 07:22] LABS: BUN/CREATININE RATIO 16.6 (10-20); CALCIUM 8.7 mg/dl (8.5-10.1); CREATININE 1.4 mg/dl (0.60-1.40); POTASSIUM 2.9 mmol/L (3.5-5.1)
[2016-06-27] MEDS: KETOROLAC TROMETHAMINE 30 MG/ML VIAL IV. PRN ×2 (07:27→12:53)
[2016-06-27] MEDS: ASPIRIN 81 MG ECTAB PO SCH (08:43)
[2016-06-27] MEDS: DOCUSATE SODIUM 100 MG CAP PO SCH (08:44)
[2016-06-27] MEDS: AZOR PO SCH (08:45)
[2016-06-27] MEDS: HEPARIN SOD 5000 UNIT/0.5 ML CARP SQ SCH (08:50)
[2016-06-27] MEDS: METOLAZONE 5 MG TAB PO SCH (09:00)
[2016-06-27] MEDS ORDERED: POTASSIUM CHLORIDE 20 MEQ TABCR PO SCH (09:00)
[2016-06-27] MEDS: FUROSEMIDE 40 MG TAB PO SCH (09:00)
[2016-06-27] MEDS: POTASSIUM CHLR 10 MEQ / WTR 10 MEQ in PREMIXED WATER 100 ML IV SCH ×2 (09:00→10:00)
--- NOTE | 2016-06-27 09:25 | Progress Note ---
Progress Note Date of Service Jun 27, 2016. Progress Note S: did well overnight BM less pain voiding better anxious to go home O: 06/27/16 05:48 Red Blood Count 3.76, Mean Corpuscular Volume 89.1, Mean Corpuscular Hemoglobin 29.8, Mean Corpuscular Hemoglobin Concent 33.4, Mean Platelet Volume 10.3, Neutrophils (%) (Auto) 65.3, Lymphocytes (%) (Auto) 21.7, Monocytes (%) (Auto) 7.9, Eosinophils (%) (Auto) 4.2, Basophils (%) (Auto) 0.4, Neutrophils # (Auto) 7.36, Lymphocytes # (Auto) 2.44, Monocytes # (Auto) 0.89, Eosinophils # (Auto) 0.47, Basophils # (Auto) 0.04 06/27/16 05:48 Test 06/27/16 05:48 White Blood Count 11.26 K/uL (4.8-10.8) Red Blood Count 3.76 M/uL (4.7-6.1) Hemoglobin 11.2 g/dL (14.0-18.0) Hematocrit 33.5 % (42-52) Mean Corpuscular Volume 89.1 fL (80-100) Mean Corpuscular Hemoglobin 29.8 pg (25-34) Mean Corpuscular Hemoglobin Concent 33.4 g/dl (32-36) Platelet Count 215 K/uL (130-400) Mean Platelet Volume 10.3 fL (7.4-10.4) Neutrophils (%) (Auto) 65.3 % Lymphocytes (%) (Auto) 21.7 % Monocytes (%) (Auto) 7.9 % Eosinophils (%) (Auto) 4.2 % Basophils (%) (Auto) 0.4 % Neutrophils # (Auto) 7.36 K/uL (1.4-6.5) Lymphocytes # (Auto) 2.44 K/uL (1.2-3.4) Monocytes # (Auto) 0.89 K/uL (0.11-0.59) Eosinophils # (Auto) 0.47 K/uL (0-0.5) Basophils # (Auto) 0.04 K/uL (0-0.2) RDW Standard Deviation 47.2 fL (36.4-46.3) RDW Coefficient of Variation 14.5 % (11.5-14.5) Immature Granulocyte % (Auto) 0.5 % Immature Granulocyte # (Auto) 0.06 K/uL (0.00-0.02) Anion Gap 9.0 mmol/L (3-11) Est Creatinine Clear Calc Drug Dose 90.3 ml/min Estimated GFR () 63.7 Estimated GFR (Non- 55.0 BUN/Creatinine Ratio 16.6 (10-20) Calcium Level 8.7 mg/dl (8.5-10.1) Vital Signs Past 12 Hours Date Time Temp Pulse Resp B/P Pulse Ox O2 Delivery O2 Flow Rate FiO2 06/27/16 07:11 37.2 74 19 153/75 97 BiPAP 06/27/16 00:00 BiPAP 06/26/16 23:00 37.2 82 16 166/78 93 Room Air NAD AAOx3 no resp distress rrr abd soft - port sites healing appropriately scrotal incisions appropriate, no d/c drains serosang A/p: s/p complex scrotal reduction - d/c home today with drains intact - K+ given this AM (oral and PO), on K+ at home - drains out next week
[2016-06-27] MEDS ORDERED: HYDR-5688 PO (09:27)
[2016-06-27] MEDS ORDERED: TAMS0.4C38 PO (09:27)
[2016-06-27] MEDS ORDERED: DOXY1TAB6 PO (09:27)
[2016-06-27] MEDS ORDERED: DOCU-94 PO (09:27)
--- NOTE | 2016-06-27 09:28 | Discharge Instructions ---
Discharge Instructions Date of Service Jun 27, 2016. Admission Reason for Admission: Scrotal Anomaly Discharge Discharge Diagnosis / Problem: scrotal lymph edema Discharge Goals Goal(s): Decrease discomfort, Improve function, Increase independence, Improve disease control, Prevent Disease Progression Activity Recommendations Activity Limitations: per Instructions/Follow-up section Lifting Limitations: no more than 25 pounds Exercise/Sports Limitations: gradually increase as tolerated May Resume Sexual Activity: when tolerated Shower/Bathe: keep incision dry (until your drains are removed. ) Driving or Machine Use: resume 1 day after discharge (as long as you arent taking pain medications) . Current Hospital Diet Hospital Diet(s): AHA Diet (Heart Healthy) Discharge Diet Recommended Diet: Regular Diet Procedures Procedures Performed: Diagnostic laparoscopy (Dr. Sanchez); complex reduction scrotoplasty; b/l hydrocelectomy; b/l excision of cord lipomas Pending Studies Studies pending at discharge: no Medical Emergencies . Who to Call and When: Medical Emergencies: If at any time you feel your situation is an emergency, please call 911 immediately. . Non-Emergent Contact Non-Emergency issues call your: Urologist Call Non-Emergent contact if: you have a fever, temperature is above 101.5, your pain is not controlled, your pain is worsening, wound has increased drainage, wound has increased redness . . "Provider Documentation" section prepared by Kartik Castañeda. VTE Core Measure Inpt VTE Proph given/why not?: Treatment not indicated
--- NOTE | 2016-06-27 09:46 | Discharge Summary ---
Discharge Summary Date of Service Jun 27, 2016. Discharge Summary Admission Date: Jun 24, 2016 at 16:52 Discharge Date: Jun 27, 2016 Discharge Disposition: Home Principal Diagnosis: massive scrotal edema; lipomas of the cords; hydroceles Procedures: complex reduction scrotoplasty, exploratory laparoscopy Medication Reconciliation New Medications: Docusate Sodium (Colace) 100 Mg Cap 1 CAP PO BID for 15 Days, #30 CAP Doxycycline Hyclate (Doxycycline Hyclate) 100 Mg Tab 1 TAB PO BID for 10 Days, #20 TAB Tamsulosin Hcl (Flomax) 0.4 Mg Cap 0.4 MG PO QD, #30 CAP Continued Medications: Amlodipine Besylate-Olmesartan (Saad) 1 Tab Tab 1 TAB PO QAM for 90 Days, #90 TAB 3 Refills 10/40 MG Aspirin (Aspirin Ec) 81 Mg Tab 81 MG PO NOON Furosemide (Lasix) 40 Mg Tab 40 MG PO QAM, TAB Hydrocodone/Acetaminophen 5MG/325MG ([place] 5MG/325MG) Tab 1 TAB PO TID PRN for RN for 30 Days, #30 TAB (This prescription has been renewed ) PRN PAIN Metolazone (Metolazone) 5 Mg Tab 5 MG PO QAM Potassium Chloride Pwd (Klor-Con Pwd) 20 Meq Pack 20 MEQ PO QAM [Magnesium] () 1 TAB PO PRN Hospital Course Admitted for reduction scrotoplasty. Details of the procedure as dictated previously in the operative reports, however, in summary, he tolerated the procedure well and was transferred to the floor in stable condition post operatively - he progressed well - ambulated - passed a voiding trial - tolerated a diet - edema was tolerable - no signs of infection - on POD #3, he was determined to be stable for d/c home - will go home with the drains in place Total time spent on discharge = This includes examination of the patient, discharge planning, medication reconciliation, and communication with other providers. Discharge Instructions please see previously written d/c instructions
[2016-06-27 11:42] VITALS: BP 101/66; PULSE 67; TEMP 36.4; O2SAT 98
[2016-06-27 12:21] VITALS: BP 101/66; PULSE 67; TEMP 36.4; O2SAT 98
[2016-08-23] MEDS ORDERED: DLDI IV (20:50)
[2016-08-23] MEDS ORDERED: NRV5 PO (20:50)
== END 2016-06-27 13:56 | disposition home health service (06) | DRG 989 ==
LOC: ENRESERVDT → ENRESERVTM → C.ACU 09:40 → C.MSW 16:52
PROVIDERS: ADMIT Urology; ATTEND Urology
PROC: 0VQ60ZZ Repair Right Tunica Vaginalis, Open Approach (ICD-10-PCS; principal; 2016-06-24 11:45)
PROC: 0VQ Male Reproductive System, Repair (ICD-10-PCS; principal; 2016-06-24 11:45)
PROC: 0VQ50ZZ Repair Scrotum, Open Approach (ICD-10-PCS; principal; 2016-06-24 11:45)
PROC: 0VBH0ZZ Excision of Bilateral Spermatic Cords, Open Approach (ICD-10-PCS; principal; 2016-06-24 11:45)
PROC: 0YQA4ZZ Repair Bilateral Inguinal Region, Percutaneous Endoscopic Approach (ICD-10-PCS; 2016-06-24 11:45)
DX: I89.0 Lymphedema, not elsewhere classified (principal); N43.3 Hydrocele, unspecified; D17.6 Benign lipomatous neoplasm of spermatic cord; R35.0 Frequency of micturition; M19.90 Unspecified osteoarthritis, unspecified site; I10 Essential (primary) hypertension; Z79.82 Long term (current) use of aspirin

== ENCOUNTER 2016-08-23 01:02 | Inpatient (IN) | payer OTHER ==
[~2016-08-23] VITALS: Ht 177.8 cm; Wt 157.0 kg
[2016-08-23] VITALS (13 sets, daily range): BP systolic 136–192; BP diastolic 70–95; PULSE 56–81; TEMP 36.4–36.8; O2SAT 94–100; Ht 177.8 cm; Wt 157.0 kg
[~2016-08-23 01:02] MED LIST changes: -CEFAZOLIN 3000 MG/65 ML D5W IV SCH; -LACTATED RINGER'S 1000ML 1,000 ML IV SCH
[2016-08-23] MEDS ORDERED: ONDANSETRON INJ 2 MG/ML 2 ML VIAL IV PRN ×2 (03:30→16:30)
[2016-08-23] MEDS ORDERED: MAGNESIUM HYDROXIDE SUSP 30 ML UDC PO PRN (03:30)
[2016-08-23] MEDS ORDERED: ACETAMINOPHEN 325 MG TAB PO PRN (03:30)
--- NOTE | 2016-08-23 03:32 | History and Physical ---
History & Physical Date & Time of Service: Aug 23, 2016 at 03:27 Chief Complaint: Scrotal Pain Primary Care Physician: Cristopher Chakraborty D.O. History of Present Illness Source: patient 56-year-old male with a past medical history of hypertension, hyperlipidemia, paroxysmal atrial fibrillation, objective sleep apnea, hernias, status post scrotoplasty presented as a direct admit from [facility] with complaints of right-sided testicular pain. 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 He complains of pain on his right side at the inside of his thigh and his right testicle which started on and off since last week. He states that it began to get worse within the last couple days. He describes the pain as constant, dull stabbing in nature about 15 on a scale of 10 in severity. Denies any nausea or vomiting, fevers or chills. Denies any dysuria, hematuria but complains of hesitancy and "having to push" to urinate. Denies any chest pain, shortness of breath, diarrhea Social History Smoking Status: Light Tobacco Smoker Allergies Coded Allergies: No Known Allergies (Unverified , 06/24/16) Home Medications Scheduled Amlodipine Besylate (Amlodipine Besylate), 5 MG PO QAM Tamsulosin Hcl (Flomax), 0.4 MG PO DAILY Scheduled PRN Hydromorphone HCl (Hydromorphone HCl), 1 MG IV Q2H PRN for Pain Review of Systems Constitutional: No fever, No chills Eyes: No worsening of vision ENT: No hearing loss Respiratory: No cough, No shortness of breath Cardiovascular: No chest pain Abdomen: + pain, + nausea, No vomiting, No diarrhea Genitourinary - Male: + urinary hesitancy, + problem reported (Right sided testicular pain) Neurologic: No paralysis Endocrine: No fatigue Hematologic / Lymphatic: No abnormal bleeding/bruising Physical Exam Vital Signs Date Time Temp Pulse Resp B/P (MAP) Pulse Ox O2 Delivery O2 Flow Rate FiO2 08/23/16 02:40 36.7 80 19 146/80 (102) 96 Room Air General Appearance: WD/WN, + mild distress, + obese Head: normocephalic, atraumatic Eyes: + pertinent finding ( proptosis asya right side) ENT: hearing grossly normal Neck: supple Respiratory/Chest: chest non-tender, lungs clear, normal breath sounds, no respiratory distress, no accessory muscle use Cardiovascular: regular rate, rhythm Abdomen/GI: + tenderness (RLQ and at laparoscopic sites) Genitourinary - Male: + penile abnormality (buried in scrotum), + testicular tenderness (asya left side), + pertinent finding (Right sided scrotal swelling, hard to palpation and tender. tender left scrotum. ) Back: normal inspection Extremities/Musculoskelatal: + pedal edema (3+ withy chronic venous stasis) Neurologic/Psych: alert, normal mood/affect, oriented x 3 Skin: + pertinent finding (yellowish ulcer with serous drainage at posterior scrotum on right side) Diagnostics Laboratory Results Results Past 24 Hours Test 08/23/16 03:22 08/23/16 03:25 Range/Units Diagnostic Radiology CT abdomen and pelvis was obtained at outside hospital: Report: There is a right hydronephrosis and hydroureter. There is fluid and infiltration around the right kidney and ureter. There is herniation of the right ureter into the right inguinal canal and scrotum. This appears to be the cause of the right-sided obstructive changes. Shift of penile shaft to left by hernia. Difficult to follow the right ureter. Limited without contrast. There is a fluid density collection that extends posterior laterally to the right ureter and kidney displacing the right kidney anteromedially. Suspect at least a portion of this is the right ureter though abscess is within the differential as well. Difficult to follow the right ureter particularly without contrast. Within the scrotum itself there are fluid collections. Portions of this may represent a distended right ureter though component of hydrocele and possibly abscess may also be present. Small amount of free fluid in the right sided abdomen felt to be extending from right perinephric infiltration. There is also mild left hydronephrosis and hydroureter which may be related to bladder distention though herniation does appear to be the primary cause of right-sided obstructive changes. There is prostate enlargement and bladder distention, some of which may be related to prostate enlargement. Mild mural thickening of the bladder is suspected. Could be related to prostate enlargement. No herniation of bladder seen in the right scrotum/inguinal canal. Surgical consultation recommended. Gallbladder distended with possible layering debris which may represent stones and/or sludge. Questionable mild wall thickening. Though suspect the right inguinal hernia/obstructive changes of the right kidney are etiology of patient' s acute presentation, cannot exclude cholecystitis. Correlate clinically. Visualized appendix appears unremarkable other than some nonspecific increased density within the lumen. Small lateral hernia. Prominent sized spleen. Measures slightly over 13 cm cranial caudal. Additional incidental findings. Impression Assessment and Plan 56-year-old male with a past medical history of hypertension, hyperlipidemia, paroxysmal atrial fibrillation, objective sleep apnea, hernias, status post scrotoplasty presented as a direct admit from [facility] with complaints of right-sided testicular pain. Right-sided testicular pain: Status post scrotoplasty secondary to scrotal lymphedema - CT abdomen/pelvis at outside hospital reveals right-sided hydronephrosis and hydroureter . herniation of the right ureter into the right inguinal canal and scrotum - Pain control with morphine - Nothing by mouth - Urology consult Acute kidney injury: Likely secondary to obstruction due to herniation of the right ureter into the right inguinal canal - Creatinine at OSH at 2.8 - Monitor creatinine - Lasix, metolazone, Saad currently held - Urology consult as above Hypertension: - Home medications currently held due to nothing by mouth status Sleep apnea: - BiPAP/CPAP DVT prophylaxis: SCDs Full code Disposition: Admitted to [facility], awaiting urology input Level of Care Med/Surg Resuscitation Status FULL RESUSCITATION VTE Prophylaxis VTE Risk Assessment Done? Y/N: Yes Risk Level: Moderate Given or contraindicated: SCD's Resident Tracking Resident Involvement: Resident Care Provided Care Provided: Adult [facility] Assessment and Plan Attending Addendum: I have physically seen and examined this patient, have directed their medical care, have supervised the medical residents activities, and agree with the H&P as noted above, with the following changes: NONE
[2016-08-23] MEDS ORDERED: TAMS0.4C38 PO (04:06)
[2016-08-23] MEDS ORDERED: PSYL0.524 (04:07)
[2016-08-23 04:12] LABS: BASO % 0.4 %; BASO ABS # 0.04 K/uL (0-0.2); EOS % 8.3 %; HEMATOCRIT 26.6 % (42-52); IG% 0.3 %; LYMPH % 33.8 %; LYMPH ABS # 3.13 K/uL (1.2-3.4); MEAN CORPUSCULAR HEMOGLOBIN 29.1 pg (25-34); MEAN CORPUSCULAR HGB CONC 32.7 g/dl (32-36); MEAN PLATELET VOLUME 9.2 fL (7.4-10.4); MONO % 6.8 %; NEUT % 50.4 %; PLATELET COUNT 329 K/uL (130-400); RED BLOOD COUNT 2.99 M/uL (4.7-6.1); WHITE BLOOD COUNT 9.26 K/uL (4.8-10.8)
[2016-08-23] MEDS ORDERED: MoRPHine SULFATE 4 MG/ML 1 ML CARP\\VIAL IV PRN (04:15)
[2016-08-23 04:33] LABS: BUN/CREATININE RATIO 12.8 (10-20); CALCIUM 9.1 mg/dl (8.5-10.1); CREATININE 2.8 mg/dl (0.60-1.40); MAGNESIUM 2.1 mg/dl (1.8-2.4); POTASSIUM 4.5 mmol/L (3.5-5.1)
[2016-08-23 04:35] LABS: ALB/GLOB RATIO 0.7 (0.9-2)
[2016-08-23 05:16] LABS: COMPLETE YES
[2016-08-23] MEDS ORDERED: CIPROFLOXACIN / D5W 400 MG IV SCH (06:00)
[2016-08-23 07:22] LABS: URINE APPEARANCE CLEAR (CLEAR); URINE BILIRUBIN NEG (NEG); URINE COLOR YELLOW; URINE NITRITE NEG (NEG); URINE PH 6.5 (4.5-7.5); URINE SPECIFIC GRAVITY 1.009 (1.000-1.030); UROBILINOGEN NEG (NEG); ZZUR CULT IF INDIC CLEAN CATCH NO
[2016-08-23 07:24] LABS: MANUAL MICROSCOPIC REQUIRED? NO; REVIEW REQ? NO
[2016-08-23] MEDS ORDERED: CIPROFLOXACIN 400MG / 200ML D5W IV ONE (09:30)
--- NOTE | 2016-08-23 09:47 | Surgery Consultation ---
Consultation Date of Consultation: Aug 23, 2016. Attending Physician: Brittany Leigh MD History of Present Illness pt known to me. approx 8 weeks ago had a scrotal reduction surgery. during the surgery I was consulted and performed and intra-op laparoscopy to evaluate the inguinal regions b/l for hernias. at the time he had no visible hernias. since the surgery he states he has had some difficulty with urination however overall he has been feeling ok and seemed to be improving. his main complaint is "heaviness" in his scrotum/right testicular area. denies constipation. denies fevers or other symptoms. Social History Smoking Status: Former Smoker Allergies Coded Allergies: No Known Allergies (Unverified , 06/24/16) Home Medications Scheduled Amlodipine Besylate-Olmesartan (Saad), 1 TAB PO QAM Aspirin (Aspirin Ec), 81 MG PO NOON Furosemide (Lasix), 40 MG PO QAM Metolazone (Metolazone), 5 MG PO QAM Potassium Chloride Pwd (Klor-Con Pwd), 20 MEQ PO QAM Tamsulosin Hcl (Flomax), 0.4 MG PO DAILY [Magnesium], 1 TAB PO PRN Scheduled PRN Hydrocodone/Acetaminophen 5MG/325MG ([place] 5MG/325MG), 1 TAB PO TID PRN for RN Miscellaneous Medications Psyllium (Metamucil) Current Inpatient Medications Current Inpatient Medications Medications (Trade) Dose Ordered Sig/Pedro Route Start Time Stop Time Status Last Admin Dose Admin Acetaminophen (Tylenol Tab) 650 mg Q4H PRN PO 08/23/16 03:30 09/22/16 03:29 Magnesium Hydroxide (Milk Of Magnesia Susp) 30 ml Q6H PRN PO 08/23/16 03:30 09/22/16 03:29 Ondansetron HCl (Zofran Inj) 4 mg Q6H PRN IV 08/23/16 03:30 09/22/16 03:29 Morphine Sulfate (MoRPHine SULFATE INJ) 4 mg Q4H PRN IV 08/23/16 04:15 09/06/16 04:14 Ciprofloxacin/ Dextrose (Cipro / D5W) 200 mg PREOP ONCE IV 08/23/16 09:30 08/23/16 09:31 UNV Sodium Chloride 1,000 ml @ 100 mls/hr Q10H IV 08/23/16 09:30 09/22/16 09:29 Review of Systems Genitourinary - Male: + urinary hesitancy, + urinary retention Physical Exam Date Time Temp Pulse Resp B/P (MAP) Pulse Ox O2 Delivery O2 Flow Rate FiO2 08/23/16 07:25 Room Air 08/23/16 06:55 36.7 62 18 143/74 (97) 96 Room Air 08/23/16 02:57 36.7 80 19 146/80 96 Room Air 08/23/16 02:40 36.7 80 19 146/80 (102) 96 Room Air General Appearance: no apparent distress Head: normocephalic, atraumatic Eyes: EOMI ENT: hearing grossly normal Respiratory/Chest: no respiratory distress, no accessory muscle use Abdomen/GI: non tender, soft Genitourinary - Male: + pertinent finding (still has enlarged scrotum with retracted penis and some edema. tender, primarily on right side. b/c of body habitus and enlarged scrotum, difficult to palpate testicle. firmness c/w hematoma vs fat incarcertated) Neurologic/Psych: alert, oriented x 3 Laboratory Results Last 24 Hours Test 08/23/16 04:05 08/23/16 07:00 White Blood Count 9.26 K/uL Red Blood Count 2.99 M/uL Hemoglobin 8.7 g/dL Hematocrit 26.6 % Mean Corpuscular Volume 89.0 fL Mean Corpuscular Hemoglobin 29.1 pg Mean Corpuscular Hemoglobin Concent 32.7 g/dl Platelet Count 329 K/uL Mean Platelet Volume 9.2 fL Neutrophils (%) (Auto) 50.4 % Lymphocytes (%) (Auto) 33.8 % Monocytes (%) (Auto) 6.8 % Eosinophils (%) (Auto) 8.3 % Basophils (%) (Auto) 0.4 % Neutrophils # (Auto) 4.66 K/uL Lymphocytes # (Auto) 3.13 K/uL Monocytes # (Auto) 0.63 K/uL Eosinophils # (Auto) 0.77 K/uL Basophils # (Auto) 0.04 K/uL RDW Standard Deviation 45.5 fL RDW Coefficient of Variation 14.0 % Immature Granulocyte % (Auto) 0.3 % Immature Granulocyte # (Auto) 0.03 K/uL Red Blood Cell Morphology Unremarkable Sodium Level 143 mmol/L Potassium Level 4.5 mmol/L Chloride Level 107 mmol/L Carbon Dioxide Level 28 mmol/L Anion Gap 8.0 mmol/L Blood Urea Nitrogen 36 mg/dl Creatinine 2.80 mg/dl Est Creatinine Clear Calc Drug Dose 43.4 ml/min Estimated GFR () 27.6 Estimated GFR (Non- 23.8 BUN/Creatinine Ratio 12.8 Random Glucose 84 mg/dl Calcium Level 9.1 mg/dl Magnesium Level 2.1 mg/dl Total Bilirubin 0.4 mg/dl Aspartate Amino Transf (AST/SGOT) 16 U/L Alanine Aminotransferase (ALT/SGPT) 48 U/L Alkaline Phosphatase 74 U/L Total Protein 7.4 gm/dl Albumin 3.0 gm/dl Globulin 4.4 gm/dl Albumin/Globulin Ratio 0.7 Urine Color YELLOW Urine Appearance CLEAR Urine pH 6.5 Urine Specific [place] 1.009 Urine Protein NEG Urine Glucose (UA) NEG Urine Ketones NEG Urine Occult Blood NEG Urine Nitrite NEG Urine Bilirubin NEG Urine Urobilinogen NEG Urine Leukocyte Esterase NEG Assessment & Plan clearly appears on ct to be communication between abdomen and scrotum ...unclear what is in the scrotum. ct without contrast. ? hematoma. ? omentum/ fat etc...also fluid in right gutter and displaced right kidney and ureter. also appears now to be a communication on left inguinal side as well. dilated right urinary system will need either ureteral stent vs perc nephrostomy tube to improve creatinine and then rec repeat ct scan with oral and IV contrast....hg dropped approx 4 gms since surgery...? hematoma? does not have any obstructive bowel symptoms. d/w Dr. Allen...will follow along closely
--- NOTE | 2016-08-23 09:56 | Urology Consultation ---
History General Date of Service: Aug 23, 2016. Chief Complaint: right flank pain Primary Care Physician: Cristopher Chakraborty D.O. Pt seen a urologist before?: Yes (Dr. Medina) If yes, why?: scrotoplasty History of Present Illness 56 yo male transferred to [facility] from [facility] with several days of right flank pain. Progressively becoming more severe. The pt reports his pain is a "12-14" out of 10 this morning. 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 He reports several days of worsening right flank pain with nausea and dry heaves. Denies f/c. Denies dysuria or hematuria. Non-contrast CT from [place] showing right hydro with portion of the right ureter noted to be located in the right inguinal canal. ? hernia of bowel vs hematoma as well. Dr. Sanchez has been consulted for this issue. ARF with Cr noted to be 2.8 on admission as well. Imaging Imaging: CT ([facility]) Laboratory Last 24 Hours Test 08/23/16 04:05 08/23/16 07:00 White Blood Count 9.26 K/uL Red Blood Count 2.99 M/uL Hemoglobin 8.7 g/dL Hematocrit 26.6 % Mean Corpuscular Volume 89.0 fL Mean Corpuscular Hemoglobin 29.1 pg Mean Corpuscular Hemoglobin Concent 32.7 g/dl Platelet Count 329 K/uL Mean Platelet Volume 9.2 fL Neutrophils (%) (Auto) 50.4 % Lymphocytes (%) (Auto) 33.8 % Monocytes (%) (Auto) 6.8 % Eosinophils (%) (Auto) 8.3 % Basophils (%) (Auto) 0.4 % Neutrophils # (Auto) 4.66 K/uL Lymphocytes # (Auto) 3.13 K/uL Monocytes # (Auto) 0.63 K/uL Eosinophils # (Auto) 0.77 K/uL Basophils # (Auto) 0.04 K/uL RDW Standard Deviation 45.5 fL RDW Coefficient of Variation 14.0 % Immature Granulocyte % (Auto) 0.3 % Immature Granulocyte # (Auto) 0.03 K/uL Red Blood Cell Morphology Unremarkable Sodium Level 143 mmol/L Potassium Level 4.5 mmol/L Chloride Level 107 mmol/L Carbon Dioxide Level 28 mmol/L Anion Gap 8.0 mmol/L Blood Urea Nitrogen 36 mg/dl Creatinine 2.80 mg/dl Est Creatinine Clear Calc Drug Dose 43.4 ml/min Estimated GFR () 27.6 Estimated GFR (Non- 23.8 BUN/Creatinine Ratio 12.8 Random Glucose 84 mg/dl Calcium Level 9.1 mg/dl Magnesium Level 2.1 mg/dl Total Bilirubin 0.4 mg/dl Aspartate Amino Transf (AST/SGOT) 16 U/L Alanine Aminotransferase (ALT/SGPT) 48 U/L Alkaline Phosphatase 74 U/L Total Protein 7.4 gm/dl Albumin 3.0 gm/dl Globulin 4.4 gm/dl Albumin/Globulin Ratio 0.7 Urine Color YELLOW Urine Appearance CLEAR Urine pH 6.5 Urine Specific [place] 1.009 Urine Protein NEG Urine Glucose (UA) NEG Urine Ketones NEG Urine Occult Blood NEG Urine Nitrite NEG Urine Bilirubin NEG Urine Urobilinogen NEG Urine Leukocyte Esterase NEG Past History A Fib, high cholesterol, hypertension, other (morbidly obese, obstructive sleep apnea, umbilical hernia) Past Surgical History: other (scrotoplasty 07-04-16 with exploratory laparoscopy , umbilical hernia repair) Family History non-contributory Social History Hx Tobacco Use In Past Year?: No Smoking: other (current every day smoker) Alcohol: occasional Marital status: single Housing status: lives alone Occupation status: disabled Allergies Coded Allergies: No Known Allergies (Unverified , 06/24/16) Medications Home Medications: Home Meds and Scripts Medications Dose Route/Sig Max Daily Dose Days Date Category Dose Instructions Metamucil (Psyllium) 0.52 Gm Cap 08/23/16 Reported Flomax (Tamsulosin Hcl) 0.4 Mg Cap 0.4 Mg PO DAILY 08/23/16 Reported Isom 5MG/325MG (Acetaminophen/Hydrocodone Bitart) Tab 1 Tab PO TID PRN 30 06/27/16 Rx PRN PAIN [Magnesium] 1 Tab PO PRN 06/07/16 Reported Klor-Con Pwd (Potassium Chloride) 20 Meq Pack 20 Meq PO QAM 06/07/16 Reported Metolazone 5 Mg Tab 5 Mg PO QAM 06/07/16 Reported Lasix (Furosemide) 40 Mg Tab 40 Mg PO QAM 06/07/16 Reported Saad (Amlodipine Besylate-Olmesartan) 1 Tab Tab 1 Tab PO QAM 90 06/07/16 Reported 10/40 MG Aspirin Ec (Aspirin) 81 Mg Tab 81 Mg PO NOON 06/07/16 Reported Inpatient Medications: Current Inpatient Medications Medications (Trade) Dose Ordered Sig/Pedro Route Start Time Stop Time Status Last Admin Dose Admin Acetaminophen (Tylenol Tab) 650 mg Q4H PRN PO 08/23/16 03:30 09/22/16 03:29 Magnesium Hydroxide (Milk Of Magnesia Susp) 30 ml Q6H PRN PO 08/23/16 03:30 09/22/16 03:29 Ondansetron HCl (Zofran Inj) 4 mg Q6H PRN IV 08/23/16 03:30 09/22/16 03:29 Morphine Sulfate (MoRPHine SULFATE INJ) 4 mg Q4H PRN IV 08/23/16 04:15 09/06/16 04:14 Sodium Chloride 1,000 ml @ 100 mls/hr Q10H IV 08/23/16 09:30 09/22/16 09:29 Hydromorphone HCl (Dilaudid Inj) 0.5 mg Q2H PRN IV 08/23/16 09:45 09/06/16 09:44 UNV Ciprofloxacin/ Dextrose 200 ml @ 100 mls/hr PREOP IV 08/23/16 06:00 08/23/16 18:00 Review of Systems Review of Systems Constitutional: No fever, No chills Eyes: No double vision Neurological: No dizzy Endocrine: No excessive thirst Gastrointestinal: + abdominal pain (right flank ), + nausea, No vomiting Cardiovascular: No chest pain Respiratory: No shortness of breath Skin: No rash Musculoskeletal: + back pain (right low back ) Male : No painful urination, No blood in urine Physical Exam Vital Signs: Vital Signs Past 12 Hours Date Time Temp Pulse Resp B/P (MAP) Pulse Ox O2 Delivery O2 Flow Rate FiO2 08/23/16 07:25 Room Air 08/23/16 06:55 36.7 62 18 143/74 (97) 96 Room Air 08/23/16 02:57 36.7 80 19 146/80 96 Room Air 08/23/16 02:40 36.7 80 19 146/80 (102) 96 Room Air Physical Exam: General Appearance: + obese (morbidly) Eyes: bilateral eyes normal inspection ENT: hearing grossly normal Neck: no JVD Respiratory/Chest: no respiratory distress, no accessory muscle use Cardiovascular: no JVD Extremities: normal inspection Neurologic/Psychiatric: alert, normal mood/affect, oriented x 3 Skin: normal color Assessment & Plan Assessment & Plan Treatment Planned: cystoscopy w/ stent A/P: Right hydronephrosis with obstructed right ureter in the inguinal canal AFVSS. I have discussed the case with Dr. Allen, Dr. eMdina, and Dr. Sanchez this morning. Per Dr. Sanchez, would prefer the pt have a CT with IV and oral contrast to accurately assess for hematoma vs hernia. However, this cannot be obtained with a Cr of 2.8. Per Dr. Allen will attempt a cysto with right ureteral stent placement today. Discussed with the pt this will be rather difficult given the location of his ureter. He is at risk for ureteral injury as well. He understands that failure to place stent will likely result in the need for transfer to tertiary facility for percutaneous nephrostomy tube placement with an interventional radiologist. All other risks and benefits of the procedure discussed with the pt. All questions answered. Consent obtained. Thanks for the consult. Will continue to follow along with primary service. attending - agree with above, patient discussed with LIFESTYLE BLOCK FARMER and Gen Surg, imaging reviewed. Elevated Cr, decreased Hb, large R inflammatory hernia, L hernia also appears present on CT scan, course of R ureter and contents of hernia unclear. IV contrast relatively contraindicated in the context of acute renal failure, also would be preferred to define contents of hernia and acuity of need for surgical reduction of hernia. Will plan RPG on right as this can be done without risking renal function and consider stent if seems amenable. However, if stent cannot be placed, which seems quite possible if it is involved in a hernia sac, then R PCN might be needed to normalize renal function and allow for IV contrast studies to further define anatomy of ongoing disease process. Will proceed this PM. ERIC
[2016-08-23] MEDS: SODIUM CHLORIDE 0.9% 1000ML 1,000 ML IV SCH ×2 (10:26→19:35)
[2016-08-23] MEDS: HYDROmorphone INJ 1 MG/ML SYR IV PRN ×5 (10:26→21:38)
[2016-08-23] MEDS ORDERED: MEPERIDINE HCL 25 MG/ML CARP IV PRN (16:30)
[2016-08-23] MEDS ORDERED: EpHEDrine SULFATE INJ 50 MG/ML AMP IV PRN (16:30)
[2016-08-23] MEDS ORDERED: ATROPINE SULFATE 0.1 MG/ML 5ML SYR IV PRN (16:30)
[2016-08-23] MEDS ORDERED: HYDROmorphone INJ 1 MG/ML SYR IV PRN (16:30)
[2016-08-23] MEDS ORDERED: LABETALOL HCL IV 5 MG/ML 20ML IV PRN (16:30)
[2016-08-23] MEDS ORDERED: MIDAZOLAM HCL 1 MG/ML 2ML VIAL ONE (17:03)
[2016-08-23] MEDS ORDERED: FENTANYL CITRATE INJ 50 MCG/1 ML 2 ML VIAL ONE (17:03)
[2016-08-23] MEDS ORDERED: CONRAY 30% 150ML BOTTLE ONE (17:15)
[2016-08-23] MEDS: FENTANYL CITRATE INJ 50 MCG/1 ML 2 ML VIAL IV PRN ×4 (18:21→18:36)
[2016-08-23] MEDS ORDERED: SUCCINYLCHOLINE CHLORIDE 20 MG/ML 10 ML VIAL IV ONE (18:25)
[2016-08-23] MEDS ORDERED: PROPOFOL IV EMULSION 10 MG/ML 20 ML VIAL IV ONE (18:25)
[2016-08-23] MEDS ORDERED: ONDANSETRON INJ 2 MG/ML 2 ML VIAL ONE (18:25)
[2016-08-23] MEDS ORDERED: ROCURONIUM BROMIDE 10 MG/ML 5 ML VIAL ONE (18:25)
[2016-08-23] MEDS ORDERED: LIDOCAINE HCL 2% 2 ML VIAL (20MG/ML) ONE (18:25)
--- NOTE | 2016-08-23 18:30 | [facility] Post Operative Brief Note ---
Immediate Operative Summary Operative Date Aug 23, 2016. Pre-Operative Diagnosis Right hydronephosis with obstructed right ureter in inguinal canal Post-Operative Diagnosis Same, large right median lobe Procedure(s) Performed Attempted Rigid Cystoscopy, Flexible cystoscopy, right retrograde pyelography Surgeon Dr Ruddy Allen Accredited Farm Manager Surgeon(s) None Estimated Blood Loss 0 ml Findings Dilated R ureter in R hemiscrotum, bladder inaccessible with rigid cystoscope due to indurated scrotum and large median lobe, unable to pass wire through herniated ureter, 650 cc of urine in bladder in OR. Specimens None per surgeon Drains 22 fr 10 cc coude cunningham Anesthesia GAET Complication(s) None Disposition Recovery Room / PACU
--- NOTE | 2016-08-23 18:33 | DIAGNOSTIC IMAGING REPORT ---
Retrograde pyelogram RETROGRADE INCLUDES KUB CLINICAL HISTORY: RT CYSTO/STENT abnormal renal position TECHNIQUE: Image intensifier COMPARISON STUDY: Image intensifier was utilized FINDINGS: Image intensifier shows retrograde opacification of a serpiginous right ureter. A guidewire is seen tracking into the right scrotum. IMPRESSION: Retrograde opacification of a low-lying right ureter apparently located within the right scrotum. Electronically signed by: Raphael Montoya M.D. 08/23/2016 6:32 PM Dictated Date/Time: 08/23/2016 6:30 PM
--- NOTE | 2016-08-23 19:15 | Anesthesiology Progress Note ---
Anesthesia Post Op Note Date & Time Aug 23, 2016 at 19:15 Vital Signs Pain Intensity: 8 Vital Signs Past 12 Hours Date Time Temp Pulse Resp B/P (MAP) Pulse Ox O2 Delivery O2 Flow Rate FiO2 08/23/16 19:05 65 22 175/92 98 Nasal Cannula 4 08/23/16 18:55 36.6 63 12 178/97 100 Nasal Cannula 4 08/23/16 18:45 69 17 162/100 100 Nasal Cannula 4 08/23/16 18:35 75 22 168/91 98 Nasal Cannula 4 08/23/16 18:25 86 25 187/102 98 Nasal Cannula 4 08/23/16 18:18 36.5 92 20 172/94 99 Mask 10 08/23/16 15:10 36.4 60 20 182/84 (116) 97 Room Air 08/23/16 11:44 81 98 08/23/16 07:25 Room Air Notes Mental Status: alert / awake / arousable, participated in evaluation Pt Amnestic to Procedure: Yes Nausea / Vomiting: adequately controlled Pain: adequately controlled Airway Patency, RR, SpO2: stable & adequate BP & HR: stable & adequate Hydration State: stable & adequate Anesthetic Complications: no major complications apparent
--- NOTE | 2016-08-23 20:00 | OPERATIVE REPORT ---
DATE OF OPERATION: 08/23/2016 PREOPERATIVE DIAGNOSIS: Right-sided hydronephrosis, renal failure, intractable right-sided flank and scrotal pain, questionable ureteral herniation through the inguinal canal with obstruction. POSTOPERATIVE DIAGNOSIS: Same, large median lobe. PROCEDURE: Attempted rigid cystoscopy, flexible cystoscopy with right retrograde pyelography. SURGEON: Dr. Ruddy Allen. BILLING AND ACCOUNTING STAFF ASSISTANT: None. ANESTHESIA: General anesthesia with endotracheal intubation. COMPLICATIONS: None. ESTIMATED BLOOD LOSS: Minimal. SPECIMENS SENT TO PATHOLOGY: None. DRAINS LEFT IN PLACE: Include a 22-Tanz[place] coude catheter with 10 mL of water in the balloon. FINDINGS: Large median lobe, bladder inaccessible with the rigid scope due to indurated scrotum and a median lobe element, right ureteral orifice accessed via the flexible scope. Retrograde pyelography demonstrates a loop of ureter dilated in the right hemiscrotum with an inability to pass a wire past the herniated portion of the ureter. A 650 mL bladder volume on intraoperative bladder drainage, chronic bladder outlet obstruction with a large median lobe. BRIEF HISTORY: Mr. Knight is a 56-year-old male, who has undergone a scrotoplasty and exploratory intraoperative laparoscopy, 2 months ago at our facility. At that time, his diagnostic laparoscopy demonstrated closed inguinal canal on both sides. The patient has been healing well from a scrotal perspective but does complain on history today of chronic obstructive voiding symptoms with a questionable history of a popping and swelling in the right hemiscrotum. He has since suffered from worsening right flank pain and was seen at the outside Emergency Room. CT scan of the abdomen and pelvis images which were reviewed by myself along with Dr. Sanchez shows bilateral hernias, right side with inflammatory herniated tissue and apparent herniation of possible ureter as well as a right retroperitoneal collection. Of note, the patient's creatinine has since risen to a 2.5 above the baseline of 1.4. His hemoglobin has dropped somewhat. Per general surgery recommendation, IV contrast study is desired to better characterize the contents of his right-sided hernia. He is being brought to the operating room today to define the anatomy of his ureter and for possible stenting depending on the findings. Plan and consent were reviewed with the patient and the patient's mother was present here today. Intravenous ciprofloxacin 200 mg provided for antibiotic coverage. Please see inpatient notes and urology consultation for further details. SCDs used for DVT prophylaxis. PROCEDURE: The patient was properly identified and brought in to the operative suite after identification of appropriate consent on the chart. General anesthesia with endotracheal intubation due to the patient's body habitus was initiated. The patient was prepped and draped in standard fashion for this procedure. A 22-Tanzanian rigid cystoscope was passed into the urethra and was advanced to the level of the prostate due to a large median lobe element, it could not be sufficiently angulated to allow for access to the bladder. The rigid cystoscope was therefore removed and a 16 Tanz[place] flexible cystoscope was able to be passed into the bladder. Bladder was noted to be quite distended with grade 2 trabeculation. A large intravesical median lobe was appreciated. The base of the median lobe appeared to involve the ureteral orifices. The right-sided ureteral orifice was able to be cannulated using an open-ended catheter and retrograde pyelography was performed. This demonstrated first a J hooking of the ureter due to the prostate gland and a significant deviation of the ureter outside the confines of the pelvis consistent with a scrotal herniation of the ureter. The portion of the ureter within the scrotum was noted to be severely dilated. An angled sensor wire was attempted to be followed, but due to the tortuosity of the ureter and the use of a flexible scope, this could not be navigated through the ureter past the curves and the herniated portion. In any case, I strongly suspect that the passage of a ureteral stent in these circumstances would not be successful in decompressing his kidney seeing the course of this ureter. At this point, the flexible cystoscope was removed and the bladder due to the median lobe and bladder distention, a 22-Tanz[place] coude catheter was placed. 650 mL of sterile urine were noted within the bladder. Ten mL of sterile water were placed in the balloon. Anesthesia was reversed. The patient was transferred to recovery room in stable condition. FOLLOWUP CARE: The patient will be readmitted to the primary service on the floor. Care is discussed with the hospitalist service as noted for decompression of his right renal moiety, a percutaneous nephrostomy will be required. I would not be surprised that his ureteral herniation is a component of his renal failure. Beyond that, the management of his complex hernia would likely require coordination with several services per their discretion. Findings were discussed with the patient and the patient's mother postoperatively. I attest to the content of the Intraoperative Record and any orders documented therein. Any exceptions are noted below. MTDD
[2016-08-23] MEDS ORDERED: DLDI IV (20:50)
[2016-08-23] MEDS ORDERED: NRV5 PO (20:50)
--- NOTE | 2016-08-23 20:53 | Discharge Instructions ---
Discharge Instructions Date of Service Aug 23, 2016. Admission Reason for Admission: Right Testicular Pain Discharge Discharge Diagnosis / Problem: DEYVI,Right hydronephrosis,Inguinal hernia Discharge Goals Goal(s): Improve disease control, Diagnostic testing, Therapeutic intervention Activity Recommendations Activity Limitations: as noted below Exercise/Sports Limitations: rest today . Instructions / Follow-Up Instructions / Follow-Up Transferred [place] [facility] [place] Hospital Diet Patient's current hospital diet: Regular Diet Discharge Diet Recommended Diet: Regular Diet Procedures Procedures Performed: Attempted Rigid Cystoscopy, Flexible cystoscopy, right retrograde pyelography Pending Studies Studies pending at discharge: no Laboratory Results Last 24 Hours Test 08/23/16 04:05 08/23/16 07:00 08/23/16 20:28 08/23/16 20:29 White Blood Count 9.26 K/uL Red Blood Count 2.99 M/uL Hemoglobin 8.7 g/dL Hematocrit 26.6 % Mean Corpuscular Volume 89.0 fL Mean Corpuscular Hemoglobin 29.1 pg Mean Corpuscular Hemoglobin Concent 32.7 g/dl Platelet Count 329 K/uL Mean Platelet Volume 9.2 fL Neutrophils (%) (Auto) 50.4 % Lymphocytes (%) (Auto) 33.8 % Monocytes (%) (Auto) 6.8 % Eosinophils (%) (Auto) 8.3 % Basophils (%) (Auto) 0.4 % Neutrophils # (Auto) 4.66 K/uL Lymphocytes # (Auto) 3.13 K/uL Monocytes # (Auto) 0.63 K/uL Eosinophils # (Auto) 0.77 K/uL Basophils # (Auto) 0.04 K/uL RDW Standard Deviation 45.5 fL RDW Coefficient of Variation 14.0 % Immature Granulocyte % (Auto) 0.3 % Immature Granulocyte # (Auto) 0.03 K/uL Red Blood Cell Morphology Unremarkable Sodium Level 143 mmol/L Potassium Level 4.5 mmol/L Chloride Level 107 mmol/L Carbon Dioxide Level 28 mmol/L Anion Gap 8.0 mmol/L Blood Urea Nitrogen 36 mg/dl Creatinine 2.80 mg/dl Est Creatinine Clear Calc Drug Dose 43.4 ml/min Estimated GFR () 27.6 Estimated GFR (Non- 23.8 BUN/Creatinine Ratio 12.8 Random Glucose 84 mg/dl Calcium Level 9.1 mg/dl Magnesium Level 2.1 mg/dl Total Bilirubin 0.4 mg/dl Aspartate Amino Transf (AST/SGOT) 16 U/L Alanine Aminotransferase (ALT/SGPT) 48 U/L Alkaline Phosphatase 74 U/L Total Protein 7.4 gm/dl Albumin 3.0 gm/dl Globulin 4.4 gm/dl Albumin/Globulin Ratio 0.7 Urine Color YELLOW Urine Appearance CLEAR Urine pH 6.5 Urine Specific [place] 1.009 Urine Protein NEG Urine Glucose (UA) NEG Urine Ketones NEG Urine Occult Blood NEG Urine Nitrite NEG Urine Bilirubin NEG Urine Urobilinogen NEG Urine Leukocyte Esterase NEG Test 08/23/16 20:45 Medical Emergencies . Who to Call and When: Medical Emergencies: If at any time you feel your situation is an emergency, please call 911 immediately. . Non-Emergent Contact Non-Emergency issues call your: Primary Care Provider . . "Provider Documentation" section prepared by Brittany Leigh. . VTE Core Measure Inpt VTE Proph given/why not?: SCD's
[2016-08-23 20:59] LABS: HEMATOCRIT 29.8 % (42-52); MEAN CELL VOLUME 91.1 fL (80-100); MEAN CORPUSCULAR HEMOGLOBIN 29.4 pg (25-34); MEAN PLATELET VOLUME 9.5 fL (7.4-10.4); PLATELET COUNT 327 K/uL (130-400); RED BLOOD COUNT 3.27 M/uL (4.7-6.1); WHITE BLOOD COUNT 9.93 K/uL (4.8-10.8)
[2016-08-23] MEDS ORDERED: HydrALAZINE HCL 20 MG/ML VIAL IV. PRN (21:00)
[2016-08-23 21:03] LABS: MEAN CORPUSCULAR HGB CONC 32.2 g/dl (32-36)
--- NOTE | 2016-08-23 21:18 | Discharge Summary ---
Discharge Summary Date of Service Aug 23, 2016. Discharge Summary Admission Date: Aug 23, 2016 at 02:29 Discharge Date: Aug 23, 2016 Discharge Disposition: Acute care facility Principal Diagnosis: DEYVI, Right inguinal hernia,Hydronephrosis Problems/Secondary Diagnoses: Hypertension Hyperlipidemia Paroxysmal atrial fibrillation now resolved s/p DCCV 08/2015 Objective sleep apnea on nocturnal BiPAP Scrotal lymphedema status post scrotoplasty and reduction Enlarged prostate with LUTS Gallbladder distended with possible layering debris which may represent stones and/or sludge. Mild splenomegaly Anemia likely of acute blood loss Morbid obesity Procedures: Attempted Rigid Cystoscopy, Flexible cystoscopy, right retrograde pyelography Retrograde pyelogram RETROGRADE INCLUDES KUB CLINICAL HISTORY: RT CYSTO/STENT abnormal renal position TECHNIQUE: Image intensifier COMPARISON STUDY: Image intensifier was utilized FINDINGS: Image intensifier shows retrograde opacification of a serpiginous right ureter. A guidewire is seen tracking into the right scrotum. IMPRESSION: Retrograde opacification of a low-lying right ureter apparently located within the right scrotum. Consultations: Urology General Surgery Medication Reconciliation New Medications: Amlodipine Besylate (Amlodipine Besylate) 5 Mg Tab 5 MG PO QAM for 30 Days, #30 TAB Hydromorphone HCl (Hydromorphone HCl) 1 Mg/Ml Inj 1 MG IV Q2H PRN for Pain for 7 Days Continued Medications: Tamsulosin Hcl (Flomax) 0.4 Mg Cap 0.4 MG PO DAILY, CAP Discontinued Medications: Amlodipine Besylate-Olmesartan (Saad) 1 Tab Tab 1 TAB PO QAM for 90 Days, #90 TAB 3 Refills 10/40 MG Aspirin (Aspirin Ec) 81 Mg Tab 81 MG PO NOON Furosemide (Lasix) 40 Mg Tab 40 MG PO QAM, TAB Hydrocodone/Acetaminophen 5MG/325MG (Zirconia 5MG/325MG) Tab 1 TAB PO TID PRN for RN for 30 Days, #30 TAB PRN PAIN Metolazone (Metolazone) 5 Mg Tab 5 MG PO QAM Potassium Chloride Pwd (Klor-Con Pwd) 20 Meq Pack 20 MEQ PO QAM Psyllium (Metamucil) 0.52 Gm Cap [Magnesium] () 1 TAB PO PRN Discharge Exam Pt had cysto today and confirmed to have right ureter entrapped in inguinal hernia causing hydronephrosis. Continues to have significant scrotal pain worse after the procedure. Afebrile, is hypertensive secondary to pain and missing AM meds due to NPO status. Shipman catheter placed intraoperatively and is making urine. I discussed the case at length with Dr. Sanchez of General Surgery and Dr. Ruddy Allen of Urology. He requires percutaneous nephrostomy tubes for relief of his obstruction causing his DEYVI. He will then need surgery which will be complex to correct his large hernia. He is hemodynamically stable despite a lower Hgb than he had 6 weeks ago, but there is a possibility he has blood in the retroperitoneal space on imaging. He is not septic, lactate was normal, no leukocytosis, afebrile. He is agreeable to transfer to [facility] [place]rost[place] tubes. Review of Systems: Constitutional: No fever, No chills Eyes: No problem reported ENT: No problem reported Respiratory: No shortness of breath Cardiovascular: No chest pain, No edema Abdomen: + pain, No nausea, No vomiting, No GI bleeding Musculoskeletal: No problem reported Genitourinary - Male: + problem reported (swollen and painful scrotum, penis ), No hematuria Neurologic: No problem reported Psychiatric: + anxiety Endocrine: No problem reported Hematologic / Lymphatic: No problem reported Integumentary: No problem reported Physical Exam: General Appearance: + mild distress, + obese (morbidly) Eyes: normal inspection, EOMI, sclerae normal ENT: hearing grossly normal, pharynx normal Neck: trachea midline Respiratory/Chest: lungs clear, normal breath sounds, no respiratory distress, no accessory muscle use Cardiovascular: regular rate, rhythm, no gallop, no murmur, normal peripheral pulses, + pertinent finding (trace pitting edema legs to knees bilat) Abdomen / GI: normal bowel sounds, soft (and morbidly obese), + tenderness ( in RLQ without guarding or rebound), + pertinent finding (+scrotal edema with mild erythema, penis is buried, Shipman in place draining clear yellow urine, + TTP of scrotum bilaterally) Extremities: no calf tenderness Neurologic/Psychiatric: alert, oriented x 3, + depressed affect Skin: normal color, warm/dry, no rash Hospital Course This pt is a 56 yo male with a h/o Hypertension, Hyperlipidemia, Paroxysmal atrial fibrillation now resolved s/p DCCV 08/2015, Objective sleep apnea on nocturnal BiPAP, Scrotal lymphedema status post scrotoplasty and reduction, Enlarged prostate with LUTS, Anemia likely of acute blood loss , and Morbid obesity who presented as a direct admit from [facility] with complaints of right-sided testicular and abdominal pain. The patient was recently admitted and underwent scrotoplexy surgery on 07/04 for scrotal lymphedema and fatty tissue that weighted approximately 20 lbs at [facility]. He was recovering well until he began having 4 days of pain on his right side at the inside of his thigh and his right testicle that was coming and going. He states that it began to get worse within the last couple days. He describes the pain as constant, dull stabbing in nature about "15 on a scale of 10" in severity. Denies any nausea or vomiting, fevers or chills. Denies any dysuria, hematuria but complains of hesitancy and "having to push" to urinate. Denies any chest pain, shortness of breath, diarrhea. CT abdomen and pelvis was obtained at outside hospital: Report: There is a right hydronephrosis and hydroureter. There is fluid and infiltration around the right kidney and ureter. There is herniation of the right ureter into the right inguinal canal and scrotum. This appears to be the cause of the right-sided obstructive changes. Shift of penile shaft to left by hernia. Difficult to follow the right ureter. Limited without contrast. There is a fluid density collection that extends posterior laterally to the right ureter and kidney displacing the right kidney anteromedially. Suspect at least a portion of this is the right ureter though abscess is within the differential as well. Difficult to follow the right ureter particularly without contrast. Within the scrotum itself there are fluid collections. Portions of this may represent a distended right ureter though component of hydrocele and possibly abscess may also be present. Small amount of free fluid in the right sided abdomen felt to be extending from right perinephric infiltration. There is also mild left hydronephrosis and hydroureter which may be related to bladder distention though herniation does appear to be the primary cause of right-sided obstructive changes. There is prostate enlargement and bladder distention, some of which may be related to prostate enlargement. Mild mural thickening of the bladder is suspected. Could be related to prostate enlargement. No herniation of bladder seen in the right scrotum/inguinal canal. Surgical consultation recommended. Gallbladder distended with possible layering debris which may represent stones and/or sludge. Questionable mild wall thickening. Though suspect the right inguinal hernia/obstructive changes of the right kidney are etiology of patient' s acute presentation, cannot exclude cholecystitis. Correlate clinically. Visualized appendix appears unremarkable other than some nonspecific increased density within the lumen. Small lateral hernia. Prominent sized spleen. Measures slightly over 13 cm cranial caudal. Additional incidental findings. He was afebrile, no signs of sepsis were present, lactate was normal. His hgb was decreased to 8.7 from 11.2 on day of discharge home from the surgery on . 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 Urology was consulted and attempted to place ureteral stent but was unable to due to the nature of the ureter being in his scrotum. General Surgery was consulted and advised transfer for percutaneous nephrostomy tubes (as did Urology) and then eventual repair of his large, complex hernia. There is also a question as to whether he has/had some bleeding post-operatively given his drop in hemoglobin and the fluid collections in the pelvis and scrotum. He was hemodynamically stable throughout his hospital course and in fact was hypertensive at times. His home diuretics and ARB medicines were held. His amlodipine was added back but at only 5 mg rather than 10mg in case he became hypotensive in the future. [facility] [place] was contacted and I spoke with Dr. Cardona (Accepting Hospitalist) as well as the cap and hat production supervisor Urologist. WIll arrange for transfer to [facility] for percutaneous nephrostomy tubes. He will require nocturnal BiPAP for his GLENN. For his PAF-he was in a NSR this admission having had a DCCV in 06/2015; he had a normal cardiac cath and ECHO reportedly in 2016. SCDs were utilized for DVT prophylaxis in case of need for further procedures. Total Time Spent: Greater than 30 minutes This includes examination of the patient, discharge planning, medication reconciliation, and communication with other providers. Discharge Instructions Please refer to the electronic Patient Visit Report (Discharge Instructions) for additional information. Additional Copies To Cristopher Chakraborty D.O. ; [facility]
[2016-08-23 21:28] LABS: POTASSIUM 4.4 mmol/L (3.5-5.1)
[2016-08-23] MEDS ORDERED: AMLODIPINE BESYLATE 5 MG TAB PO ONE (21:30)
[2016-08-23] MEDS ORDERED: NURSING VERBAL MED ORDER ONE (21:45)
[2016-08-23 22:09] LABS: BUN/CREATININE RATIO 11.9 (10-20); CALCIUM 9.2 mg/dl (8.5-10.1); THYROID STIMULATING HORMONE 0.786 uIu/ml (0.300-4.500)
[2016-08-24] MEDS: HYDROmorphone INJ 1 MG/ML SYR IV PRN (01:43)
[2016-08-24] MEDS ORDERED: AMLODIPINE BESYLATE 5 MG TAB PO SCH (09:00)
[2016-08-24] MEDS ORDERED: TAMSULOSIN HCL 0.4 MG CAP PO SCH (09:00)
== END 2016-08-24 01:38 | disposition short-term general hospital (02) | DRG 694 ==
LOC: C.MSN 02:29
PROVIDERS: ADMIT Family Medicine; ATTEND Family Medicine
PROC: BT1D0ZZ Fluoroscopy of Right Kidney, Ureter and Bladder using High Osmolar Contrast (ICD-10-PCS; principal; 2016-08-23 15:30)
DX: N13.1 Hydronephrosis with ureteral stricture, not elsewhere classified (principal); D62 Acute posthemorrhagic anemia; Z68.42 Body mass index [BMI] 45.0-49.9, adult; N17.9 Acute kidney failure, unspecified; N32.0 Bladder-neck obstruction; K40.90 Unilateral inguinal hernia, without obstruction or gangrene, not specified as recurrent; I89.0 Lymphedema, not elsewhere classified; I10 Essential (primary) hypertension; E78.5 Hyperlipidemia, unspecified; N40.0 Benign prostatic hyperplasia without lower urinary tract symptoms; F17.200 Nicotine dependence, unspecified, uncomplicated; G47.33 Obstructive sleep apnea (adult) (pediatric); E66.01 Morbid (severe) obesity due to excess calories; Z99.89 Dependence on other enabling machines and devices; Z98.890 Other specified postprocedural states; Z79.82 Long term (current) use of aspirin; Z79.891 Long term (current) use of opiate analgesic; Z79.899 Other long term (current) drug therapy